=== PATIENT | male | born 1975 | race African-American/Black ===

== ENCOUNTER 2022-10-04 14:15 | Emergency (ER) | payer MEDICAID ==
[~2022-10-04] VITALS: Ht 175.3 cm; Wt 106.0 kg
[2022-10-04 14:19] VITALS: BP 198/125
== END 2022-10-04 18:14 | disposition left against medical advice (07) ==
LOC: ER 14:15
DX: Z53.21 Procedure and treatment not carried out due to patient leaving prior to being seen by health care provider (principal)
CPT/HCPCS: 93005